=== PATIENT | female | born 1945 | race Caucasian/White ===

== ENCOUNTER 2017-01-12 06:48 | Day surgery (SDC) | payer OTHER ==
[~2017-01-12] VITALS: Ht 154.9 cm; Wt 58.5 kg
[~2017-01-12 06:48] MED LIST: ALLEGRA ALLERG180 MG PO; ALTACE10 MG PO; ASPIRIN81 M2 PO; BISOPROLOL FUMAR5 MG PO; CHEWABLE-VITE1 EACH PO; CILOSTAZOL50 MG PO; CRESTOR40 MG PO; FLONASE ALLERG9.9 ML BOTH NARES; FOSAMAX70 MG PO; LASIX20 MG PO; PLAVIX75 MG PO; TRAMADOL HCL50 MG PO; VENTOLIN HFA18 GM IH; VITAMIN B-125000 MCG SL; VITAMIN D-32000 UNI2 PO; ZANTAC300 MG PO
[2017-01-12 13:35] VITALS: BP 158/70
[2017-01-12 14:04] VITALS: BP 158/70
[2017-01-12 14:54] VITALS: BP 178/80
[2017-01-12 15:28] VITALS: BP 178/80
== END 2017-01-12 15:00 | disposition home or self-care (01) ==
LOC: SDC 06:48
DX: M20.12 Hallux valgus (acquired), left foot (principal); M20.42 Other hammer toe(s) (acquired), left foot; M62.472 Contracture of muscle, left ankle and foot; J45.909 Unspecified asthma, uncomplicated; F17.200 Nicotine dependence, unspecified, uncomplicated; K21.9 Gastro-esophageal reflux disease without esophagitis; M19.90 Unspecified osteoarthritis, unspecified site; Z79.51 Long term (current) use of inhaled steroids
CPT/HCPCS: C1713; J0171; J0690; J2795; J3010; S0020

== ENCOUNTER 2017-05-26 10:41 | Emergency (ER) | payer OTHER ==
[~2017-05-26] VITALS: Ht 154.9 cm; Wt 57.8 kg
[2017-05-26 11:26] LABS: HEMATOCRIT 38.3 % (36.0-46.0); MCH 31.9 PG (29.0-34.0); MCHC 32.9 G/DL (30.0-36.0); MEAN PLAT.VOLUME 11.3 uM^3 (9.5-12.4); PLATELET COUNT 222 K/uL (156-360); RBC DIS.WIDTH-SD 50.1 % (39-53); RED BLOOD COUNT 3.95 M/uL (3.80-5.20); WHITE BLOOD COUNT 8.1 K/uL (4.1-10.2)
[2017-05-26 11:34] LABS: CHLORIDE 107 mEq/L (99-109); POTASSIUM 4.1 mEq/L (3.7-5.4); SODIUM 142 mEq/L (136-147)
[2017-05-26 11:36] LABS: GLUCOSE 154 mg/dL (70-99)
[2017-05-26 11:37] LABS: ANION GAP 10 MEQ/L (2-14)
[2017-05-26 11:40] LABS: GFR ESTIMATE (CALCULATED) > 59 mL/min/; UREA NITROGEN (BUN) 8 mg/dL (9-23)
[2017-05-26 11:47] LABS: TROP-I INTERPRETATION NEGATIVE; TROPONIN-I < 0.01 ng/mL (0.0-0.30)
[2017-05-26] MEDS ORDERED: FLEXERIL10 MG PO (15:31)
[2017-05-26] MEDS ORDERED: MOBIC7.5 MG PO (15:31)
[2017-05-26 15:59] VITALS: BP 150/69
== END 2017-05-26 16:03 | disposition left against medical advice (07) ==
LOC: EME 10:41
DX: M54.2 Cervicalgia (principal); R07.9 Chest pain, unspecified; G89.29 Other chronic pain; M54.9 Dorsalgia, unspecified; I65.22 Occlusion and stenosis of left carotid artery; J44.9 Chronic obstructive pulmonary disease, unspecified; I10 Essential (primary) hypertension; K21.9 Gastro-esophageal reflux disease without esophagitis; Z95.1 Presence of aortocoronary bypass graft; Z95.5 Presence of coronary angioplasty implant and graft; Z79.02 Long term (current) use of antithrombotics/antiplatelets; Z79.82 Long term (current) use of aspirin; F17.200 Nicotine dependence, unspecified, uncomplicated
CPT/HCPCS: 70450; 70498; 71020; 80048; 84484; 85027; 93005; 99281; 99285; J1885